=== PATIENT | male | born 1985 ===

== ENCOUNTER 2020-03-10 19:27 | Emergency (ER) | payer OTHER ==
[2020-03-10] MEDS ORDERED: Sodium Chloride 0.9% 1,000 ML IV ONE (20:07)
[2020-03-10] MEDS ORDERED: Ondansetron 4 MG/2 ML SDV IVPUSH ONE (20:07)
[2020-03-10] MEDS ORDERED: Metoclopramide 10 MG/2 ML SDV IV ONE (20:07)
[2020-03-10] MEDS ORDERED: diphenhydrAMINE 50 MG/ML SDV IVPUSH ONE (20:07)
--- NOTE | 2020-03-10 20:43 | EDM.PDOC ---
ED HPI GENERAL MEDICAL PROBLEM - General Chief Complaint: Headache Stated Complaint: HEADACHE SEVERE Time Seen by Provider: 03/10/20 19:47 - History of Present Illness INITIAL COMMENTS - FREE TEXT/NARRATIVE: SEE YASH THOMAS'S NOTE. Headache Pain Score (Numeric/FACES): 7 - Related Data Allergies Allergy/AdvReac Type Severity Reaction Status Date / Time No Known Allergies Allergy Verified 03/10/20 19:53 Home Meds: Home Meds . [No Known Home Meds] 03/10/20 [History] Past Medical History Neurological History: Reports: Other (See Below) Other Neuro History: undiagnosed hx of migraines - Infectious Disease History Infectious Disease History: Reports: Chicken Pox Social & Family History - Tobacco Use Smoking Status *Q: Never Smoker Second Hand Smoke Exposure: No - Caffeine Use Caffeine Use: Reports: Energy Drinks - Recreational Drug Use Recreational Drug Use: No ED ROS GENERAL - Review of Systems Review Of Systems: See Below (SEE HPI) - Physical Exam Exam: See Below (SEE HPI AND COURSE) Course - Vital Signs Text/Narrative:: Patient initially seen by YASH Thomas, however I was called to evaluate the patient when CT scan resulted with abnormal appearance, with leftward shift with mass versus hematoma on the left side I also examined the patient myself. He has normal neurologic exam and was able to ambulate without any difficulty. He reports pain started 9 days ago at rest upon awakening. He has not had any recent head trauma. 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 CT scan results discussed with radiology by myself. Large subdural hematoma that appears subacute with midline shift of 1.1 cm and concern for impending herniation or brainstem compression. The patient will be emergently flown to the nearest neurosurgical capable facility which is [facility]. The case was discussed with the neurosurgeon and ER physician at [facility] by YASH Lopez. The patient has had a neurologic exam throughout his emergency department stay. He is alert, mentally clear, protecting his airway well without any signs of decompensation. Intubation deferred at this time. PLEASE SEE YASH LOPEZ'S NOTE FOR FULL DETAILS ON THE CASE AND TIMES OF CONSULTATIONS, TRANSFER, ETC. Last Recorded V/S: Last Vital Signs Temp 97.6 F 03/10/20 19:53 Pulse 82 03/10/20 19:53 Resp 16 03/10/20 19:53 BP 133/89 03/10/20 19:53 Pulse Ox 97 03/10/20 19:53 - Orders/Labs/Meds Orders: Active Orders 24 hr Category Date Time Status Saline Lock Insert [OM.PC] Stat Oth 03/10/20 20:48 Ordered Labs: Laboratory Tests 03/10/20 03/10/20 03/10/20 Range/Units 21:01 21:01 21:01 WBC 6.48 (4.0-11.0) K/uL RBC 4.11 L (4.50-5.90) M/uL Hgb 13.1 (13.0-17.0) g/dL Hct 38.3 (38.0-50.0) % MCV 93.2 (80.0-98.0) fL MCH 31.9 (27.0-32.0) pg MCHC 34.2 (31.0-37.0) g/dL RDW Std Deviation 42.8 (28.0-62.0) fl RDW Coeff of William 13 (11.0-15.0) % Plt Count 280 (150-400) K/uL MPV 8.70 (7.40-12.00) fL Neut % (Auto) 64.8 (48.0-80.0) % Lymph % (Auto) 25.6 (16.0-40.0) % [place] % (Auto) 8.2 (0.0-15.0) % Eos % (Auto) 0.9 (0.0-7.0) % Baso % (Auto) 0.5 (0.0-1.5) % Neut # (Auto) 4.2 (1.4-5.7) K/uL Lymph # (Auto) 1.7 (0.6-2.4) K/uL [place] # (Auto) 0.5 (0.0-0.8) K/uL Eos # (Auto) 0.1 (0.0-0.7) K/uL Baso # (Auto) 0.0 (0.0-0.1) K/uL Nucleated RBC % 0.0 /100WBC Nucleated RBCs # 0 K/uL INR 1.05 Sodium 137 (136-148) mmol/L Potassium 3.1 L (3.5-5.1) mmol/L Chloride 102 (98-107) mmol/L Carbon Dioxide 25.3 (21.0-32.0) mmol/L BUN 16 (7.0-18.0) mg/dL Creatinine 0.9 (0.8-1.3) mg/dL Est Cr Clr Drug Dosing 140.83 mL/min Estimated GFR (MDRD) > 60.0 ml/min Glucose 105 (74-106) mg/dL Calcium 8.2 L (8.5-10.1) mg/dL Total Bilirubin 0.3 (0.2-1.0) mg/dL AST 37 (15-37) IU/L ALT 84 H (14-63) IU/L Alkaline Phosphatase 68 (46-116) U/L Total Protein 7.1 (6.4-8.2) g/dL Albumin 4.0 (3.4-5.0) g/dL Globulin 3.1 (2.6-4.0) g/dL Albumin/Globulin Ratio 1.3 (0.9-1.6) Meds: Medications Discontinued Medications Generic Name Dose Route Start Last Admin Trade Name Freq PRN Reason Stop Dose Admin Diphenhydramine HCl 50 mg 03/10/20 20:07 03/10/20 20:20 Benadryl IVPUSH 03/10/20 20:08 50 mg ONETIME ONE Administration Sodium Chloride 1,000 mls @ 999 mls/hr 03/10/20 20:07 03/10/20 20:24 Normal Saline IV 03/10/20 21:07 999 mls/hr STAT ONE Administration Metoclopramide HCl 10 mg 03/10/20 20:07 03/10/20 20:23 Reglan IV 03/10/20 20:08 10 mg ONETIME ONE Administration Ondansetron HCl 4 mg 03/10/20 20:07 03/10/20 20:21 Zofran IVPUSH 03/10/20 20:08 4 mg ONETIME ONE Administration Sodium Chloride 10 ml 03/10/20 20:47 Saline Flush FLUSH ASDIRECTED PRN Keep Vein Open Sodium Chloride 2.5 ml 03/10/20 20:47 Saline Flush FLUSH ASDIRECTED PRN Keep Vein Open Departure - Departure Time of Disposition: 21:01 Disposition: DC/Tfer to Acute Hospital 02 Clinical Impression: Subdural hematoma, Compression of brainstem - Discharge Information Referrals: PCP,None [Primary Care Provider] - Forms: ED Department Discharge Critical Care Note - Critical Care Note Total Time (mins): 35 Comments: risk of acute neurologic catastrophe, decompensation, herniation. Sepsis Event Note (ED) - Evaluation Sepsis Screening Result: No Definite Risk - Focused Exam Vital Signs: Vital Signs Temp Pulse Resp BP Pulse Ox 03/10/20 19:53 97.6 F 82 16 133/89 97 - My Orders Last 24 Hours: My Active Orders 03/10/20 20:48 Saline Lock Insert [OM.PC] Stat - Assessment/Plan Last 24 Hours: My Active Orders 03/10/20 20:48 Saline Lock Insert [OM.PC] Stat
[2020-03-10] MEDS ORDERED: Sodium Chloride 0.9% 10 ML Syringe FLUSH PRN (20:47)
[2020-03-10] MEDS ORDERED: Sodium Chloride 0.9% 2.5 ML Syringe FLUSH PRN (20:47)
--- NOTE | 2020-03-10 21:10 | CT ---
Head CT Technique: Multiple axial sections through the brain were obtained. Intravenous contrast was not utilized. Findings: Large isodense subdural hematoma is noted on the right side. This has a thickness of approximately 2.6 cm. There is midline shift being seen measuring approximately 1.1 cm. No other abnormal parenchymal densities are seen on this study. Asymmetric dilatation of the temporal horn of the lateral ventricle is seen compatible with early brainstem compression. Bone window settings were reviewed which shows no acute calvarial abnormality. Visualized paranasal sinuses and mastoid sinuses are clear. No acute calvarial finding is seen. Impression: 1. Large isodense subdural hematoma causing midline shift to the left side as described above. This is causing early brainstem compression and needs decompression. 2. No additional abnormality is appreciated on noncontrast head CT exam. Study was discussed by phone with ordering healthcare provider immediately after the exam was available with recommendations for intervention given early brainstem compression. Diagnostic code #5 This report was dictated in MDT
--- NOTE | 2020-03-10 21:13 | EDM.PDOC ---
ED HPI GENERAL MEDICAL PROBLEM - General Chief Complaint: Headache Stated Complaint: HEADACHE SEVERE Time Seen by Provider: 03/10/20 19:47 Source of Information: Reports: Patient History Limitations: Reports: No Limitations - History of Present Illness INITIAL COMMENTS - FREE TEXT/NARRATIVE: HISTORY AND PHYSICAL: History of present illness: Patient is a 34-year-old male who presents to the ED today with concern of headache x1 week. Patient states when the headache started he initially felt like he had a sinus infection and was using [id number] saline to help with his symptoms. Patient states despite taking Tylenol and ibuprofen several times over the past several days, his headache has worsened. Patient states that this is the worst headache that he has ever had and states that he does not have a history of headaches. 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 Patient denies any health history. Patient states he took 1 dose of ibuprofen earlier this morning without relief of symptoms. Patient states that yesterday he had 2-3 episodes of vomiting and since yesterday he has felt nauseous. Patient states he has had one episode of vomiting today. Patient denies any other symptoms or concerns. Patient denies fever, chills, chest pain, shortness of breath, or cough. Denies neck stiff ness, change in vision, syncope, or near syncope. Denies abdominal pain, diarrhea, constipation, or dysuria. Has not noted any blood in urine or stool. Review of systems: As per history of present illness and below otherwise all systems reviewed and negative. Past medical history: As per history of present illness and as reviewed below otherwise noncontributory. Surgical history: As per history of present illness and as reviewed below otherwise noncontributory. Social history: See social history for further information Family history: As per history of present illness and as reviewed below otherwise noncontributory. Physical exam: General: Patient is alert, oriented, and in no acute distress. Patient sitting comfortably on exam table. HEENT: Atraumatic, normocephalic, pupils equal and reactive bilaterally, negative for conjunctival pallor or scleral icterus, mucous membranes moist, TMs normal bilaterally, throat clear, neck supple, nontender, trachea midline. No drooling or trismus noted. No meningeal signs. No hot potato voice noted. Lungs: Clear to auscultation, breath sounds equal bilaterally, chest nontender. Heart: S1S2, regular rate and rhythm without overt murmur Abdomen: Soft, nondistended, nontender. Negative for masses or hepatosplenomegaly. Negative for costovertebral tenderness. Pelvis: Stable nontender. Genitourinary: Deferred. Rectal: Deferred. Skin: Intact, warm, dry. No lesions or rashes noted. Extremities: Atraumatic, negative for cords or calf pain. Neurovascular unremark able. Neuro: Awake, alert, oriented. Cranial nerves II through XII unremarkable. Cerebellum unremarkable. Motor and sensory unremarkable throughout. Exam nonfocal. Normal gait. Normal sensation. Normal speech. Full ROM of all extremities without deficit. EOMs intact. Notes: Dr. Lindsey directly involved in patient care. Patient is completely neurologically intact. Call from Dr. Butler at 20:[address] report via phone to myself and Dr. Lindsey. Flight called to ER emergently. 21:01--> Dr. Powers, [facility], discussed patients case thoroughly. Accepting of transfer. Flight arranged. Dr. Delarosa, [facility] made aware of transfer. Flight arrived at 21:20. Diagnostics: Heat CT, CBC, CMP, Pt/INR, PTT Therapeutics: Zofran, NS, Benadryl, Reglan (given prior to CT report) Impression: Subdural hematoma with midline shift with brainstem compression Plan: Transfer to [facility] via Flight to Dr. Powers (neurosurgery) /Dr. Delarosa (emergency room physician) Definitive disposition and diagnosis as appropriate pending reevaluation and review of above. Headache Pain Score (Numeric/FACES): 7 - Related Data Allergies Allergy/AdvReac Type Severity Reaction Status Date / Time No Known Allergies Allergy Verified 03/10/20 19:53 Home Meds: Home Meds . [No Known Home Meds] 03/10/20 [History] Past Medical History Neurological History: Reports: Other (See Below) Other Neuro History: undiagnosed hx of migraines - Infectious Disease History Infectious Disease History: Reports: Chicken Pox Social & Family History - Tobacco Use Smoking Status *Q: Never Smoker Second Hand Smoke Exposure: No - Caffeine Use Caffeine Use: Reports: Energy Drinks - Recreational Drug Use Recreational Drug Use: No ED ROS GENERAL - Review of Systems Review Of Systems: Comprehensive ROS is negative, except as noted in HPI. ED EXAM, GENERAL - Physical Exam Exam: See Below (see dictation) Course - Vital Signs Last Recorded V/S: Last Vital Signs Temp 97.6 F 03/10/20 19:53 Pulse 82 03/10/20 19:53 Resp 16 03/10/20 19:53 BP 133/89 03/10/20 19:53 Pulse Ox 97 03/10/20 19:53 - Orders/Labs/Meds Orders: Active Orders 24 hr Category Date Time Status COMPREHENSIVE METABOLIC PN,CMP [CHEM] Stat Lab 03/10/20 21:01 Received Sodium Chloride 0.9% [Saline Flush] Med 03/10/20 20:47 Active 10 ml FLUSH ASDIRECTED PRN Sodium Chloride 0.9% [Saline Flush] Med 03/10/20 20:47 Active 2.5 ml FLUSH ASDIRECTED PRN Saline Lock Insert [OM.PC] Stat Oth 03/10/20 20:48 Ordered Medication Orders Sodium Chloride (Saline Flush) 10 ml FLUSH ASDIRECTED PRN PRN Reason: Keep Vein Open Sodium Chloride (Saline Flush) 2.5 ml FLUSH ASDIRECTED PRN PRN Reason: Keep Vein Open Labs: Laboratory Tests 03/10/20 03/10/20 Range/Units 21:01 21:01 WBC 6.48 (4.0-11.0) K/uL RBC 4.11 L (4.50-5.90) M/uL Hgb 13.1 (13.0-17.0) g/dL Hct 38.3 (38.0-50.0) % MCV 93.2 (80.0-98.0) fL MCH 31.9 (27.0-32.0) pg MCHC 34.2 (31.0-37.0) g/dL RDW Std Deviation 42.8 (28.0-62.0) fl RDW Coeff of William 13 (11.0-15.0) % Plt Count 280 (150-400) K/uL MPV 8.70 (7.40-12.00) fL Neut % (Auto) 64.8 (48.0-80.0) % Lymph % (Auto) 25.6 (16.0-40.0) % [place] % (Auto) 8.2 (0.0-15.0) % Eos % (Auto) 0.9 (0.0-7.0) % Baso % (Auto) 0.5 (0.0-1.5) % Neut # (Auto) 4.2 (1.4-5.7) K/uL Lymph # (Auto) 1.7 (0.6-2.4) K/uL [place] # (Auto) 0.5 (0.0-0.8) K/uL Eos # (Auto) 0.1 (0.0-0.7) K/uL Baso # (Auto) 0.0 (0.0-0.1) K/uL Nucleated RBC % 0.0 /100WBC Nucleated RBCs # 0 K/uL INR 1.05 Meds: Medications Generic Name Dose Route Start Last Admin Trade Name Freq PRN Reason Stop Dose Admin Sodium Chloride 10 ml 03/10/20 20:47 Saline Flush FLUSH ASDIRECTED PRN Keep Vein Open Sodium Chloride 2.5 ml 03/10/20 20:47 Saline Flush FLUSH ASDIRECTED PRN Keep Vein Open Discontinued Medications Generic Name Dose Route Start Last Admin Trade Name Freq PRN Reason Stop Dose Admin Diphenhydramine HCl 50 mg 03/10/20 20:07 03/10/20 20:20 Benadryl IVPUSH 03/10/20 20:08 50 mg ONETIME ONE Administration Sodium Chloride 1,000 mls @ 999 mls/hr 03/10/20 20:07 03/10/20 20:24 Normal Saline IV 03/10/20 21:07 999 mls/hr STAT ONE Administration Metoclopramide HCl 10 mg 03/10/20 20:07 03/10/20 20:23 Reglan IV 03/10/20 20:08 10 mg ONETIME ONE Administration Ondansetron HCl 4 mg 03/10/20 20:07 03/10/20 20:21 Zofran IVPUSH 03/10/20 20:08 4 mg ONETIME ONE Administration Departure - Departure Time of Disposition: 21:23 Disposition: DC/Tfer to Acute Hospital 02 Clinical Impression: Subdural hematoma, Compression of brainstem - Discharge Information Referrals: PCP,None [Primary Care Provider] - Forms: ED Department Discharge Sepsis Event Note (ED) - Evaluation Sepsis Screening Result: No Definite Risk - Focused Exam Vital Signs: Vital Signs Temp Pulse Resp BP Pulse Ox 03/10/20 19:53 97.6 F 82 16 133/89 97
[2020-03-10 21:27] LABS: BLOOD UREA NITROGEN,BUN 16 mg/dL (7.0-18.0); CARBON DIOXIDE,CO2 25.3 mmol/L (21.0-32.0); CHLORIDE,CL 102 mmol/L (98-107); GLUCOSE RANDOM 105 mg/dL (74-106); POTASSIUM,K 3.1 mmol/L (3.5-5.1); SODIUM,NA 137 mmol/L (136-148)
== END 2020-03-10 21:23 ==
LOC: MW.ED 19:27
DX: I62.00 Nontraumatic subdural hemorrhage, unspecified (principal); G93.5 Compression of brain
CPT/HCPCS: 36415; 70450; 80053; 85025; 85610; 96361; 96374; 96375; 99285; J1200; J2405; J2765; J7030